=== PATIENT | female | born 1960 | race Caucasian/White ===

== ENCOUNTER 2022-04-28 06:16 | Day surgery (SDC) | payer BC, MEDICAID, MEDICARE ==
[~2022-04-28 06:16] MED LIST: Lactated Ringers 1,000 ML IV SCH; Sodium Chloride 0.9% 10 ML Syringe FLUSH PRN
[2022-04-28] MEDS ORDERED: Propofol 200 MG/20 ML SDV IV ONE (06:17)
[2022-04-28] MEDS ORDERED: Ondansetron 4 MG/2 ML SDV IVPUSH ONE (06:17)
== END 2022-04-28 09:12 | disposition home or self-care (01) ==
LOC: FB.SDS 06:16
PROVIDERS: ATTEND Surgery
DX: Z12.11 Encounter for screening for malignant neoplasm of colon (principal); D12.6 Benign neoplasm of colon, unspecified; K57.30 Diverticulosis of large intestine without perforation or abscess without bleeding; F41.9 Anxiety disorder, unspecified; E78.5 Hyperlipidemia, unspecified; I10 Essential (primary) hypertension; E21.3 Hyperparathyroidism, unspecified; Z79.899 Other long term (current) drug therapy; Z79.01 Long term (current) use of anticoagulants; Z79.890 Hormone replacement therapy; Z88.2 Allergy status to sulfonamides; Z88.1 Allergy status to other antibiotic agents; Z98.890 Other specified postprocedural states; Z87.891 Personal history of nicotine dependence
CPT/HCPCS: 00812-QZ; 88305; J2405; J2704; J7120

== ENCOUNTER 2024-11-17 11:06 | Emergency (ER) | payer MEDICARE ==
[2024-11-17 11:56] LABS: APPEARANCE,URINE SLIGHTLY CLOUDY (CLEAR); COLOR,URINE ORANGE (YELLOW)
[2024-11-17 12:05] LABS: RBC,URINE 20-30 (0-5); WBC,URINE >100 (0-5)
[2024-11-17 12:06] LABS: BACTERIA,URINE MANY (NS); SQUAMOUS EPITHELIAL CELLS,UR OCCASIONAL (NS,R,O)
[2024-11-17 12:07] LABS: LEUKOCYTE ESTERASE,URINE LARGE (NEGATIVE)
== END 2024-11-17 13:15 | disposition home or self-care (01) ==
LOC: FB.ED 11:06
DX: N39.0 Urinary tract infection, site not specified (principal); I10 Essential (primary) hypertension; Z87.891 Personal history of nicotine dependence; Z88.2 Allergy status to sulfonamides; Z88.8 Allergy status to other drugs, medicaments and biological substances; Z79.890 Hormone replacement therapy; Z79.01 Long term (current) use of anticoagulants
CPT/HCPCS: 81001; 87086; 87088; 87186; 99283